=== PATIENT | male | born 1965 | race Caucasian/White ===

== ENCOUNTER 2020-06-09 13:33 | Outpatient (REF) | payer BC, SELFPAY ==
[2020-06-09 22:31] LABS: Calculated LDL 158 mg/dL (<100); Cholesterol 231 mg/dL (<200); Glucose 109 mg/dL (74-106); HDL Cholesterol 54 mg/dL (40-60); Triglyceride 99 mg/dL (<150)
[2020-06-11 15:56] LABS: Hepatitis C Ab w Rflx HCV PCR Negative (Negative)
== END 2020-06-09 13:53 ==
LOC: NCHCN 13:33
PROVIDERS: PCP Nurse Practitioner Family; Visit Provider Nurse Practitioner Family
DX: L20.9 Atopic dermatitis, unspecified (principal); Z13.1 Encounter for screening for diabetes mellitus; Z13.220 Encounter for screening for lipoid disorders; Z11.59 Encounter for screening for other viral diseases
CPT/HCPCS: 80061; 82947; 86803

== ENCOUNTER 2023-09-26 15:57 | Outpatient (REF) | payer BC, SELFPAY ==
[2023-09-26 22:09] LABS: HCT 44.1 % (40.0-50.0); HGB 14.5 g/dL (13.5-17.5); MCH 31.3 pg (27.0-33.0); MCHC 32.9 % (32.0-36.0); MCV 95 fL (80-95); MPV 11.7 fL (8.0-11.0); Platelet Count 153 10^3/uL (130-400); RBC 4.64 10^6/uL (4.36-5.78); RDW 11.8 % (11.8-14.1); WBC 8.69 10^3/uL (4.4-10.8)
[2023-09-26 22:28] LABS: ALT 49 U/L (16-63); AST 25 U/L (15-37); Albumin 4.4 g/dL (3.4-5.0); Alkaline Phosphatase 75 U/L (46-116); Anion Gap 10.8 mmol/L (3-11); BUN 14 mg/dL (7-18); Bilirubin, Total 0.6 mg/dL (0.2-1.0); CO2 28.2 mmol/L (21.0-32.0); CREATININE 1.1 mg/dL (0.70-1.30); Calculated LDL 120 mg/dL (<100); Chloride 100 mmol/L (98-107); Cholesterol 219 mg/dL (<200); Estimated GFR 78.79 (mL/min/1.73m2); Glucose 103 mg/dL (74-106); HDL Cholesterol 55 mg/dL (40-60); Potassium 3.7 mmol/L (3.5-5.1); Sodium 139 mmol/L (136-145); Total Protein 7.7 g/dL (6.4-8.2); Triglyceride 223 mg/dL (<150)
[2023-09-27 18:51] LABS: PSA, Screening 0.7 ng/mL (<=3.5)
== END 2023-09-26 15:58 | disposition home or self-care (01) ==
LOC: NCHCN 15:57
PROVIDERS: PCP Nurse Practitioner Family; Visit Provider Nurse Practitioner Family
DX: Z00.00 Encounter for general adult medical examination without abnormal findings (principal); Z12.5 Encounter for screening for malignant neoplasm of prostate
CPT/HCPCS: 80053; 80061; 84153; 85027